=== PATIENT | male | born 1975 ===

== ENCOUNTER 2021-09-30 15:40 | Emergency (ER) | payer OTHER, SELFPAY ==
[2021-09-30 15:55] VITALS: BP 133/81; PULSE 92; RESP 18; TEMP 36.8; O2SAT 100
--- NOTE | 2021-09-30 16:51 | PC.NURSE ---
@[id number]- Pt states I am not staying in this [facility] cell, put me in another room and i will stay other cho I'm leaving. I informed him saying that is not an option at this time due to being at capacity. Pt said he does not care and started to walk out. I yell out for help saying that he is walking out. Pt did not stop and walked out of department attempted to call security and there was no answer.
--- NOTE | 2021-09-30 16:52 | PC.NURSE ---
jamie OSBORNE called regarding pt elopement.
== END 2021-09-30 16:51 | disposition left against medical advice (07) ==
PROVIDERS: PCP Internal Medicine
DX: S60.460A Insect bite (nonvenomous) of right index finger, initial encounter (principal)
CPT/HCPCS: 99199